=== PATIENT | female | born 1950 | race African-American/Black ===

== ENCOUNTER 2021-05-31 10:59 | Emergency (ER) | payer MEDICARE ==
[~2021-05-31] VITALS: Ht 154.9 cm; Wt 73.6 kg
[2021-05-31] MEDS ORDERED: GLIP5 PO (11:03)
[2021-05-31] MEDS ORDERED: ATEN-72 PO (11:03)
[2021-05-31] MEDS ORDERED: HYDR25TA2 PO (11:04)
[2021-05-31] MEDS ORDERED: LEVO25TA9 PO (11:04)
[2021-05-31 13:34] LABS: BILIRUBIN,URINE NEGATIVE (NEGATIVE); GLUCOSE, URINE (UA) NEGATIVE (NEGATIVE); KETONES,URINE TRACE mg/dL (NEGATIVE); LEUKOCYTE ESTERASE ,URINE MODERATE (NEGATIVE); NITRATE,URINE NEGATIVE (NEGATIVE); OCCULT BLOOD,URINE TRACE (NEGATIVE); PROTEIN,URINE NEGATIVE (NEGATIVE)
[2021-05-31 13:36] LABS: APPEARANCE,URINE SLIGHTLY CLOUDY (CLEAR)
[2021-05-31 13:37] LABS: BACTERIA,URINE Many /HPF (None Seen); RBC,URINE 0-2 /HPF (0-2); SQUAMOUS EPITHELIAL CELL,UR Moderate /LPF (None Seen)
[2021-05-31 14:00] VITALS: BP 116/61
== END 2021-05-31 14:22 | disposition home or self-care (01) ==
LOC: EMS 10:59
DX: N39.0 Urinary tract infection, site not specified (principal); E11.9 Type 2 diabetes mellitus without complications; E78.00 Pure hypercholesterolemia, unspecified; I10 Essential (primary) hypertension
CPT/HCPCS: 81001; 87077; 87086; 87186; 99283

== ENCOUNTER 2022-04-14 21:40 | Emergency (ER) | payer MEDICARE ==
[~2022-04-14] VITALS: Ht 152.4 cm; Wt 54.5 kg
[~2022-04-14 21:40] MED LIST: ATEN-72 PO; GLIP5TAB12 PO; HYDR25TA2 PO; LEVO25TA9 PO
[2022-04-14 22:56] LABS: APPEARANCE,URINE CLEAR (CLEAR); BILIRUBIN,URINE NEGATIVE (NEGATIVE); GLUCOSE, URINE (UA) TRACE mg/dL (NEGATIVE); KETONES,URINE NEGATIVE (NEGATIVE); LEUKOCYTE ESTERASE ,URINE NEGATIVE (NEGATIVE); NITRATE,URINE NEGATIVE (NEGATIVE); OCCULT BLOOD,URINE NEGATIVE (NEGATIVE); PROTEIN,URINE NEGATIVE (NEGATIVE); SPECIFIC GRAVITIY, URINE 1.009 (1.003-1.030); UROBILINOGEN,URINE <=1.0 mg/dL (<=1.0)
[2022-04-14 23:35] VITALS: BP 143/53
[2022-04-14] MEDS ORDERED: PRED-554 PO (23:45)
[2022-04-14] MEDS ORDERED: PredniSONE 20 MG TABLET PO ONE (23:45)
[2022-04-14] MEDS ORDERED: CIPR500T10 PO (23:46)
== END 2022-04-15 00:26 | disposition home or self-care (01) ==
LOC: EMS 21:44
DX: T78.40XA Allergy, unspecified, initial encounter (principal); E11.9 Type 2 diabetes mellitus without complications; E78.00 Pure hypercholesterolemia, unspecified; I10 Essential (primary) hypertension; X58.XXXA Exposure to other specified factors, initial encounter; Z87.440 Personal history of urinary (tract) infections; Z88.1 Allergy status to other antibiotic agents
CPT/HCPCS: 99283; 81003; J7512

== ENCOUNTER 2023-08-02 10:59 | Emergency (ER) | payer MEDICARE ==
[~2023-08-02] VITALS: Ht 154.9 cm; Wt 72.7 kg
[~2023-08-02 10:59] MED LIST changes: +CIPR500T10 PO; -GLIP5TAB12 PO; +GLIP5TAB16 PO; +PRED-554 PO
[2023-08-02 11:04] VITALS: TEMP 98.4
[2023-08-02 12:11] LABS: APPEARANCE,URINE HAZY (CLEAR); BILIRUBIN,URINE NEGATIVE (NEGATIVE); COLOR,URINE YELLOW (YELLOW); GLUCOSE, URINE (UA) NEGATIVE (NEGATIVE); KETONES,URINE NEGATIVE (NEGATIVE); LEUKOCYTE ESTERASE ,URINE LARGE (NEGATIVE); NITRATE,URINE NEGATIVE (NEGATIVE); OCCULT BLOOD,URINE LARGE (NEGATIVE); PROTEIN,URINE 100-200,SEE CONFIRM mg/dL (NEGATIVE); SPECIFIC GRAVITIY, URINE 1.022 (1.003-1.030)
[2023-08-02 12:23] LABS: BASOPHILS % (AUTO) 0.5 % (0.0-2.0); EOSINOPHILS % (AUTO) 1.1 % (1.0-6.0); HEMATOCRIT 37.6 % (36-46); HEMOGLOBIN 12.1 g/dL (12.0-16.0); LYMPHOCYTES # (AUTO) 1.9 K/uL (1.0-4.8); LYMPHOCYTES % (AUTO) 30.3 % (22.0-44.0); MEAN CORPUSCULAR HEMOGLOBIN 27.1 pg (26.0-34.0); MEAN CORPUSCULAR VOLUME 85 fL (80-100); MONOCYTES # (AUTO) 0.6 K/uL (0.1-1.0); MONOCYTES % (AUTO) 10.4 % (2.0-9.0); NEUTROPHILS # (AUTO) 3.5 K/uL (1.8-7.7); NEUTROPHILS % (AUTO) 57.7 % (40.0-70.0); PLATELET COUNT (AUTO) 310 K/uL (150-450); RED BLOOD CELL COUNT(AUTO) 4.44 MIL/uL (4.00-5.20); RED CELL DISTRIBUTION WIDTH 15.2 % (11.5-14.5); WHITE BLOOD COUNT (AUTO) 6.1 K/uL (4.5-11.0)
[2023-08-02 12:28] LABS: ANION GAP 3 mmol/L (8-16); CALCIUM, TOTAL 8.8 mg/dL (8.8-10.5); CARBON DIOXIDE 32 mmol/L (22-29); CHLORIDE 107 mmol/L (98-107); CREATININE 0.97 mg/dL (0.60-1.30); GLOMERULAR FILTR. RATE CALC > 60 mL/min (>60); GLUCOSE,RANDOM 82 mg/dL (70-110); POTASSIUM 4.2 mmol/L (3.5-5.1); SODIUM SERUM 142 mmol/L (136-145); UREA NITROGEN, BLOOD 13 mg/dL (7-18)
[2023-08-02 12:33] LABS: SULFOSALICYLIC ACID,URINE 2+ (Negative)
[2023-08-02 12:34] LABS: BACTERIA,URINE Moderate /HPF (None Seen); RBC,URINE 26-50 /HPF (0-2); SQUAMOUS EPITHELIAL CELL,UR Few /LPF (None Seen); WBC,URINE 51-100 /HPF (0-5)
[2023-08-02 12:34] LABS: ALANINE AMINOTRANSFERASE 28 U/L (12-78); ALBUMIN 3.1 g/dL (3.4-5.0); ALKALINE PHOSPHATASE 74 U/L (46-116); ASPARTATE AMINOTRANSFERASE 22 U/L (15-37); BILIRUBIN,TOTAL 0.2 mg/dL (0.1-1.0); LIPASE 25 U/L (16-77); TOTAL PROTEIN, SERUM 6.7 g/dL (6.4-8.2)
[2023-08-02 12:36] LABS: TROPONIN I-HIGH SENSITIVITY 7 ng/L (<51)
[2023-08-02] MEDS ORDERED: PHENAZOPYRIDINE HCL 100 MG TABLET PO ONE (13:15)
[2023-08-02] MEDS ORDERED: CEPHALEXIN MONOHYDRATE 500 MG CAPSULE PO ONE (13:15)
[2023-08-02] MEDS ORDERED: PHEN-846 PO (13:18)
[2023-08-02] MEDS ORDERED: CEPH-558 PO (13:20)
[2023-08-02 13:33] VITALS: BP 131/72; PULSE 75; RESP 18
== END 2023-08-02 13:34 | disposition home or self-care (01) ==
LOC: EMS 10:59
DX: N39.0 Urinary tract infection, site not specified (principal); E11.9 Type 2 diabetes mellitus without complications; E78.00 Pure hypercholesterolemia, unspecified; I10 Essential (primary) hypertension; Z88.8 Allergy status to other drugs, medicaments and biological substances
CPT/HCPCS: 80053; 81001; 81002; 83690; 84484; 85025; 87086; 87186; 99283